=== PATIENT | female | born 1955 | race Two or more races ===

== ENCOUNTER 2017-06-07 16:16 | Emergency (ER) | payer OTHER ==
[~2017-06-07] VITALS: Ht 162.6 cm; Wt 68.0 kg
[~2017-06-07 16:16] MED LIST: IBUPROFEN400 MG ORAL; IBUPROFEN600 MG ORAL; NORCO 5-325 TA1 EACH ORAL
[2017-06-07] MEDS ORDERED: NKM (16:35)
--- NOTE | 2017-06-07 17:16 | Emergency Room Report ---
History of Present Illness General Chief Complaint: General Complaint Source: Patient Present Illness HPI 62-year-old female, no significant past medical history, presenting with generalized weakness, diarrhea, feeling dehydrated. Patient states it started 2 days ago. Has had 3-4 episodes of diarrhea per day. No fever no chills. Feels too weak to get out of bed. Denies any recent travel, no bloody stool, no recent antibiotic use Allergies: Coded Allergies: No Known Allergies (Unverified , 11/05/15) Patient History Past Medical History: see triage record Past Surgical History: none Pertinent Family History: none Last Menstrual Period: Post Reviewed Nursing Documentation: PMH: Agreed, PSxH: Agreed Nursing Documentation-PMH Past Medical History: No History, Except For Review of Systems All Other Systems: negative except mentioned in HPI Physical Exam Vital Signs Date Time Temp Pulse Resp B/P (MAP) Pulse Ox O2 Delivery O2 Flow Rate FiO2 06/07/17 16:29 98.1 84 17 150/98 96 Room Air Sp02 EP Interpretation: reviewed, normal General Appearance: alert, GCS 15, non-toxic, mild distress Head: normocephalic, atraumatic Eyes: bilateral eye normal inspection, bilateral eye PERRL, bilateral eye EOMI ENT: normal ENT inspection, normal pharynx, normal voice, moist mucus membranes Neck: normal inspection, full range of motion, supple Respiratory: normal inspection, lungs clear, normal breath sounds, no respiratory distress, no retraction, no wheezing, speaking full sentences, chest symmetrical Cardiovascular #1: normal inspection, regular rate, rhythm, normal capillary refill Cardiovascular #2: 2+ radial (R), 2+ radial (L) Gastrointestinal: normal inspection, non tender, soft, non-distended, no guarding Musculoskeletal: normal inspection, back normal, normal range of motion, non- tender Neurologic: normal inspection, alert, oriented x3, responsive, motor strength/ tone normal, sensory intact, normal gait, speech normal Psychiatric: normal inspection, judgement/insight normal, memory normal Skin: normal inspection, normal color, no rash, warm/dry, well hydrated, normal turgor Medical Decision Making ER Course 62-year-old female, generalized weakness, diarrhea, feeling dehydrated DDX: Dehydration, electrolyte disturbance, gastroenteritis Abdomen is very soft nontender at this time Plan: Obtain labs, ua, ucx, CXR, EKG IV fluids, Zofran ER course: Patient has remained stable during ED stay. vss nontoxic appearing feels better repeat abd exam continues to be nontender Disposition: Patient is to be discharged to home. Patient is instructed to follow up with their primary care doctor within 5 days. Strict return precautions discussed with patient such as fever, chills, worsening/severe diarrhea/dehydration, nausea, vomiting, which may indicate severe illness. Patient verbalizes understanding and agrees with plan. Please note that this Emergency Department Report was dictated using [employer] technology software, occasionally this can lead to erroneous entry secondary to interpretation by the dictation equipment EKG Diagnostic Results EP Interpretation: Yes Rate: normal Rhythm: NSR ST Segments: No acute changes ASA given to patient: No Rhythm Strip EP Interpretation: Yes Rate: 77 Rhythm: NSR, no PVCs, no ectopy Chest X-ray CXR: Ordered: Yes 1 view Indication: Chest pain EP interpretation: Yes Interpretation: No consolidation, no effusion, no PTX, no acute cardiopulmonary disease Impression: No acute disease Electronically signed by Angel Mares MD Laboratory Tests Test 06/07/17 17:45 06/07/17 19:00 White Blood Count 4.8 K/UL (4.8-10.8) Red Blood Count 3.89 M/UL (4.20-5.40) L Hemoglobin 12.5 G/DL (12.0-16.0) Hematocrit 36.9 % (37.0-47.0) L Mean Corpuscular Volume 95 FL (80-99) Mean Corpuscular Hemoglobin 32.3 PG (27.0-31.0) H Mean Corpuscular Hemoglobin Concent 34.0 G/DL (32.0-36.0) Red Cell Distribution Width 11.1 % (11.6-14.8) L Platelet Count 231 K/UL (150-450) Mean Platelet Volume 7.8 FL (6.5-10.1) Neutrophils (%) (Auto) 47.6 % (45.0-75.0) Lymphocytes (%) (Auto) 37.0 % (20.0-45.0) Monocytes (%) (Auto) 10.0 % (1.0-10.0) Eosinophils (%) (Auto) 4.2 % (0.0-3.0) H Basophils (%) (Auto) 1.1 % (0.0-2.0) Sodium Level 139 MMOL/L (136-145) Potassium Level 3.8 MMOL/L (3.5-5.1) Chloride Level 105 MMOL/L (98-107) Carbon Dioxide Level 29 MMOL/L (21-32) Anion Gap 5 mmol/L (5-15) Blood Urea Nitrogen 11 mg/dL (7-18) Creatinine 0.6 MG/DL (0.55-1.30) Estimate Glomerular Filtration Rate > 60 mL/min (>60) Glucose Level 110 MG/DL (74-106) H Calcium Level 8.7 MG/DL (8.5-10.1) Total Bilirubin 0.2 MG/DL (0.2-1.0) Aspartate Amino Transferase (AST) 19 U/L (15-37) Alanine Aminotransferase (ALT) 27 U/L (12-78) Alkaline Phosphatase 94 U/L (46-116) Troponin I 0.000 ng/mL (0.000-0.056) Pro-B-Type Natriuretic Peptide 72 pg/mL (0-125) Total Protein 6.7 G/DL (6.4-8.2) Albumin 3.3 G/DL (3.4-5.0) L Globulin 3.4 g/dL Albumin/Globulin Ratio 1.0 (1.0-2.7) Urine Color Pale yellow Urine Appearance Clear Urine pH 7 (4.5-8.0) Urine Specific [place] 1.005 (1.005-1.035) Urine Protein Negative (NEGATIVE) Urine Glucose (UA) Negative (NEGATIVE) Urine Ketones Negative (NEGATIVE) Urine Occult Blood Negative (NEGATIVE) Urine Nitrite Negative (NEGATIVE) Urine Bilirubin Negative (NEGATIVE) Urine Urobilinogen Normal MG/DL (0.0-1.0) Urine Leukocyte Esterase Negative (NEGATIVE) Last Vital Signs Date Time Temp Pulse Resp B/P (MAP) Pulse Ox O2 Delivery O2 Flow Rate FiO2 06/07/17 16:29 98.1 84 17 150/98 96 Room Air Disposition: HOME, SELF-CARE Condition: Improved Angel Mares M.D. Jun 07, 2017 17:15
[2017-06-07 18:00] VITALS: BP 118/72
[2017-06-07 18:01] LABS: BASOPHILS % (AUTO) 1.1 % (0.0-2.0); EOSINOPHILS % (AUTO) 4.2 % (0.0-3.0); HEMATOCRIT 36.9 % (37.0-47.0); HEMOGLOBIN 12.5 G/DL (12.0-16.0); MEAN CORPUSCULAR VOLUME 95 FL (80-99); NEUTROPHILS % (AUTO) 47.6 % (45.0-75.0); PLATELET COUNT 231 K/UL (150-450); RED BLOOD COUNT 3.89 M/UL (4.20-5.40); RED CELL DISTRIBUTION WIDTH 11.1 % (11.6-14.8); WHITE BLOOD COUNT 4.8 K/UL (4.8-10.8)
[2017-06-07 18:13] LABS: ANION GAP 5 mmol/L (5-15); BLOOD UREA NITROGEN 11 mg/dL (7-18); CALCIUM 8.7 MG/DL (8.5-10.1); CARBON DIOXIDE 29 MMOL/L (21-32); CHLORIDE 105 MMOL/L (98-107); CREATININE 0.6 MG/DL (0.55-1.30); POTASSIUM 3.8 MMOL/L (3.5-5.1); SODIUM 139 MMOL/L (136-145)
[2017-06-07 18:24] LABS: ALANINE AMINOTRANSFERASE 27 U/L (12-78); ALBUMIN 3.3 G/DL (3.4-5.0); ALKALINE PHOSPHATASE 94 U/L (46-116); ASPARTATE AMINO TRANSFERASE 19 U/L (15-37); BILIRUBIN,TOTAL 0.2 MG/DL (0.2-1.0)
[2017-06-07 19:13] LABS: APPEARANCE,URINE CLEAR; BILIRUBIN, URINE NEGATIVE (NEGATIVE); COLOR,URINE PALE YELLOW; GLUCOSE, URINE (UA) NEGATIVE (NEGATIVE); KETONES,URINE NEGATIVE (NEGATIVE); LEUKOCYTE ESTERASE ,URINE NEGATIVE (NEGATIVE); NITRITE,URINE NEGATIVE (NEGATIVE); PH,URINE 7 (4.5-8.0); PROTEIN,URINE NEGATIVE (NEGATIVE); UROBILINOGEN,URINE NORMAL MG/DL (0.0-1.0)
[2017-06-07 19:30] VITALS: BP 148/93
[2017-06-07 20:10] VITALS: BP 148/93
--- NOTE | 2017-06-08 11:43 | Diagnostic Imaging Report ---
Indication: Chest pain Technique: One view of the chest Comparison: none Findings: Lungs and pleural spaces are clear. Heart size is normal Impression: No acute process
--- NOTE | 2017-06-08 18:21 | Cardiology Report ---
APPROVED REPORT EKG Measurement Heart [id number] Normal sinus rhythm Possible Left atrial enlargement Borderline ECG
== END 2017-06-07 20:10 | disposition home or self-care (01) ==
LOC: EMR 17:01
DX: R53.1 Weakness (principal)
CPT/HCPCS: 36415; 71045; 80053; 81003; 83880; 84484; 85025; 93005; 99284

== ENCOUNTER 2018-03-22 19:25 | Emergency (ER) | payer OTHER ==
[~2018-03-22] VITALS: Ht 165.1 cm; Wt 65.8 kg
[~2018-03-22 19:25] MED LIST changes: +NKM
[2018-03-22 20:00] VITALS: BP 153/96
[2018-03-22] MEDS ORDERED: Bacitracin Oint UD TOPIC ONE (20:00)
--- NOTE | 2018-03-22 20:16 | Emergency Room Report ---
History of Present Illness General Chief Complaint: Pain Source: Patient Present Illness HPI 62-year-old female patient presents to ER complaining of leg and back pain status post fall 2 hours ago. Reports she was walking sore when she tripped over some cords. Reports she fell onto her left knee and her low back. Reports her cane hit her jaw. denies jaw clicking. Denies hitting her head or loss consciousness. Denies bowel or bladder incontinence. Reports pain radiating down left leg thigh. Reports able ambulate. Reports walks with cane currently. Denies fever, chest pain or shortness of breath, abdominal pain. Reports small abrasion on left anterior knee, bleeding well controlled at this time. Allergies: Coded Allergies: No Known Allergies (Unverified , 11/05/15) Patient History Past Medical History: see triage record Last Menstrual Period: unk Now: No : 1 Para: 1 Reviewed Nursing Documentation: PMH: Agreed; PSxH: Agreed Nursing Documentation-PMH Past Medical History: No History, Except For Review of Systems All Other Systems: negative except mentioned in HPI Physical Exam Vital Signs Date Time Temp Pulse Resp B/P (MAP) Pulse Ox O2 Delivery O2 Flow Rate FiO2 03/22/18 19:42 98.1 78 15 153/96 97 Room Air Sp02 EP Interpretation: reviewed, normal General Appearance: well appearing, no apparent distress, alert, GCS 15, non- toxic Head: normocephalic, atraumatic Eyes: bilateral eye normal inspection, bilateral eye PERRL ENT: hearing grossly normal, normal pharynx, no angioedema, normal voice, uvula midline, moist mucus membranes Neck: full range of motion Respiratory: lungs clear, normal breath sounds, no rhonchi, no respiratory distress, no accessory muscle use, no wheezing, speaking full sentences Cardiovascular #1: regular rate, rhythm, no edema Cardiovascular #2: 2+ dorsalis pedis (R), 2+ dorsalis pedis (L) Musculoskeletal: back normal, digits/nails normal, gait/station normal, normal range of motion, no calf tenderness, pelvis stable, other - NVI, no leg length discrepancy, no laxity with varus or valgus stress, tender - left anterior knee , left lumbosacral region Neurologic: alert, oriented x3, responsive, motor strength/tone normal, SLR negative, sensory intact, cerebellar normal, normal gait, speech normal Skin: abrasions - 1 cm abrasion on left anterior knee, no surrounding erythema or edema, no active bleeding Medical Decision Making PA Attestation Dr. Guillen is my supervising Physician whom patient management has been discussed with. Diagnostic Impression: Primary Impression: Fall Additional Impressions: Contusion of left knee Back pain Degenerative disc disease ER Course Pt. presents to the ED c/o left knee and back pain, abrasion on left knee. Ddx considered but are not limited to fracture, sprain, strain, contusion, dislocation. No erythema, no warmth to touch, no fever, nontoxic appearing, low suspicion for septic joint. Soft compartments, no pulselessness, no pallor, no paresthesias, low suspicion for compartment syndrome at this time. Vital signs: are WNL, pt. is afebrile Ordered X-ray and pain medication. ER COURSE left knee abrasion clean and dressed with sterile gauze and bacitracin. Keep clean and dry. Apply topical abx. Rx provided. Provided with pain medication. An X-ray of the Left knee shows acute disease. Likely contusion causing pain symptoms. CT of the L-spine shows no acute fracture, degenerative changes noted, stenosis noted. followup with PCP, discuss further treatment, referral, discuss MRI need. Discuss results with the patient. Provided patient with copy of results. Instructed patient to followup with PCP and discuss results of report with patient, discuss need for further treatment and referral. Patient instructed on RICE method: rest, ice, compression, elevation. Patient instructed on rest, ice and heat. Patient instructed to be WBAT Contact information for orthopedic urgent care provided, follow-up with urgent care if unable to followup with primary care provider and get referral to coding and reimbursement specialist. Followup with primary care provider. Discuss referral to ortho/pain management/ PT as needed. Discuss further imaging with MRI/CT as needed. ER precautions given. DISCHARGE: -Rx provided for Tylenol for pain symptoms. Rx provided for lidocaine patch Rx provided for bacitracin At this time pt. is stable for d/c to home. Patient is resting comfortably, in no acute distress, nontoxic appearing, talking without difficulty. Will provide printed patient care instructions, and any necessary prescriptions. Patient instructed to follow with primary care provider in 3 - 5 days and to request further follow-up as needed. Care plan and follow up instructions have been discussed with the patient prior to discharge. Take medications as directed. Patient questions asked and answered. Patient reports understanding and agreement to treatment plan. ER precautions given, patient instructed to return to ER immediately for any new or worsening of symptoms. - Please note that this Emergency Department Report was dictated using [employer] technology software, occasionally this can lead to erroneous entry secondary to interpretation by the dictation equipment. Other X-Ray Diagnostic Results Other X-Ray Diagnostic Results : X-Ray ordered: left knee # of Views/Limited Vs Complete: 3 View Indication: Pain EP Interpretation: Yes PA Xray: Interpretation reviewed, by supervising MD, and agrees with findings. Interpretation: no dislocation, no soft tissue swelling, no fractures, nonspecific bowel gas Impression: No acute disease NIKKI Carnes PA-C CT/MRI/US Diagnostic Results CT/MRI/US Diagnostic Results : Imaging Test Ordered: CT L spine Impression 1. No acute lumbar spine fracture or malalignment. 2. Mild dextroscoliosis with multilevel degenerative disc disease and facet arthropathy, as detailed above. 3. L3-4: Mild spinal canal, and mild-moderate bilateral foraminal stenosis. 4. L4-5: Mild-moderate spinal canal, moderate right and mild left foraminal stenosis. 5. L5-S1: Moderate right lateral recess, mild right and moderate left foraminal stenosis. Last Vital Signs Date Time Temp Pulse Resp B/P (MAP) Pulse Ox O2 Delivery O2 Flow Rate FiO2 03/22/18 19:42 98.1 78 15 153/96 97 Room Air Status: improved Disposition: HOME, SELF-CARE Condition: Stable Scripts Bacitracin/Polymyxin B Sulfate (BACITRACIN-POLYMYXIN OINTMENT) 28.35 Gm Oint...g. 1 APPLIC TP BID, #28 GM Prov: Salbador Carnes 03/22/18 Acetaminophen* (TYLENOL EXTRA STRENGTH*) 500 Mg Tablet 500 MG ORAL Q8H PRN for Prn Headache/Temp > 101, #30 TAB 0 Refills Prov: Salbador Carnes.AVangie 03/22/18 Lidocaine (Lidocaine) 1 Each Adh..patch 5 % TP DAILY for 7 Days, #7 PATCH Prov: Salbador Carnes 03/22/18 Patient Instructions: Abrasion, Xpha-[id number], Back Pain, Adult, Laet-up-Ekua, Fall Prevention in the Home, Mhck-[id number], Knee Pain, Rgbj-ih-Caek Additional Instructions: Patient instructed to follow up with primary care provider and discuss further referral to orthopedics/physical therapy/pain management as needed. If unable to followup with PCP, followup with orthopedic urgent care in 5-7 days , call to schedule appointment. Patient instructed on RICE method: rest, ice, compression, elevation. Apply ice and heat to back for pain symptoms. Keep wound clean and dry. Patient instructed to WBAT. Take medications as directed. Patient questions asked and answered. ER precautions given, patient instructed to return to ER immediately for any new or worsening of symptoms. [facility] [address] [facility] [address] [facility], [id number] [email or web address] Salbador Carnes Mar 22, 2018 20:16
[2018-03-22] MEDS ORDERED: TYLENOL EXTRA500 MG ORAL (21:24)
[2018-03-22] MEDS ORDERED: LIDOCAINE700 M1 TP (21:24)
[2018-03-22] MEDS ORDERED: BACITRACIN-P28.35 GM TP (21:30)
[2018-03-22 22:00] VITALS: BP 143/88
--- NOTE | 2018-03-23 08:52 | Diagnostic Imaging Report ---
Indication: Pain status post injury Technique: CT bar spine was performed utilizing automated exposure control without intravenous contrast material. Axial, sagittal coronal images were generated. CT dose: Total DLP 400.71 mGycm; CTDI vol 15.9 mGy Comparison: None Findings: The last pair of image ribs are hypoplastic. This last rib-bearing vertebral body will be denoted as T12 for the purposes of counting on this exam only. Using this convention there are 5 nonrib-bearing lumbar-type vertebral bodies. There is mild scoliosis of the lower lumbar spine. No evidence to suggest spondylolisthesis. No acute fractures identified. Vertebral body heights are maintained. There is significant degenerative change of the lumbar spine with multilevel discogenic degenerative changes most pronounced in the lower lumbar spine. At T12-L1: There is degenerative disc with moderate height loss, vacuum disc phenomenon. Apparent focal right central disc osteophyte complex impressing on the ventral thecal sac. There is mild facet arthropathy. There is mild associated central canal stenosis and right foraminal narrowing. At L1-L2: Mild disc height loss and circumferential disc bulge with endplate osteophytes. Mild facet arthropathy. No appreciable central canal stenosis or foraminal narrowing. At L2-L3: Mild disc height loss and cervical vertebral disc bulge with endplate osteophytes and mild facet arthropathy. Apparent mild bilateral foraminal stenosis. No significant central canal stenosis. At L3-L4: Moderate disc height loss, vacuum phenomenon and moderate size cervical vertebral disc bulge and endplate osteophytes. Moderate bilateral facet arthropathy. Mild spinal canal stenosis. Mild to moderate bilateral foraminal stenosis. At L4-L5: Severe right-sided disc height loss and vacuum phenomenon. Moderate size circumflex virtual disc bulge and endplate osteophytes. Moderate bilateral facet arthropathy, worse on the right. Mild to moderate spinal canal stenosis. Moderate right and mild left foraminal stenosis. At L5-S1: Severely degenerated disc with loss of height and partial bone fusion across the disc space. There are endplate osteophytes and moderate bilateral facet arthropathy, worse on the right. Moderate right lateral recess stenosis due to facet hypertrophy. Mild right and moderate left foraminal stenosis. No appreciable significant central canal stenosis. Please note that the central cord, disks and nerve roots are better evaluated on MRI which can be obtained for further evaluation as clinically indicated. The abdominal aorta is normal in caliber with a few scattered atherosclerotic calcifications. IMPRESSION: * No evidence of acute lumbar spine fracture. * Mild scoliosis. * Multilevel discogenic degenerative disease of the spine as detailed above, most pronounced in the lower lumbar spine. Please note that the central cord, disks and nerve roots are better evaluated on MRI which can be obtained for further evaluation as clinically indicated. This corresponds with the statrad preliminary report. The CT scanner at [facility] is accredited by the [employer] and the scans are performed using protocols designed to limit radiation exposure to as low as reasonably achievable to attain images of sufficient resolution adequate for diagnostic evaluation.
--- NOTE | 2018-03-23 11:30 | Diagnostic Imaging Report ---
Indication: Pain Technique: XRAY Knee 3v LT Comparison: None Findings: There is no evidence of acute fracture or dislocation. There is overall mild degenerative change of the knee with some medial prominent joint space narrowing with subchondral sclerosis and mild subchondral cystic change. Small marginal osteophytes are also noted. There is a small fabella. No significant suprapatellar joint effusion. No radiopaque foreign body. Impression: Overall mild degenerative change of the left knee. No evidence of acute fracture.
== END 2018-03-22 22:00 | disposition home or self-care (01) ==
LOC: EMR 20:22
DX: S80.02XA Contusion of left knee, initial encounter (principal); M54.9 Dorsalgia, unspecified; M51.36 Other intervertebral disc degeneration, lumbar region; M41.9 Scoliosis, unspecified; W01.0XXA Fall on same level from slipping, tripping and stumbling without subsequent striking against object, initial encounter; Y92.9 Unspecified place or not applicable
CPT/HCPCS: 72131; 99284

== ENCOUNTER 2018-05-17 14:23 | Emergency (ER) | payer OTHER ==
[~2018-05-17] VITALS: Ht 165.1 cm; Wt 68.0 kg
[~2018-05-17 14:23] MED LIST changes: +BACITRACIN-P28.35 GM TP; +LIDOCAINE700 M1 TP; +TYLENOL EXTRA500 MG ORAL
[2018-05-17 14:54] VITALS: BP 140/80
--- NOTE | 2018-05-17 15:13 | Emergency Room Report ---
History of Present Illness General Chief Complaint: Pain Source: Patient, Medical Record Present Illness HPI 63-year-old female presents to the emergency department complaining of 7 out of 10 in severity localized pain to the right heel 4 days. Patient reports that she feels swelling and her pain is exacerbated upon weight-bearing. Patient states she is able to walk however she tries to limit putting weight on her right heel. Patient denies trauma or fall. Denies open wounds or bleeding. Patient denies skin color changes. She denies paresthesias. Allergies: Coded Allergies: No Known Allergies (Unverified , 05/17/18) Patient History Past Medical History: see triage record Past Surgical History: none Pertinent Family History: none Now: No Reviewed Nursing Documentation: PMH: Agreed; PSxH: Agreed Nursing Documentation-PMH Past Medical History: No History, Except For Review of Systems All Other Systems: negative except mentioned in HPI Physical Exam Vital Signs Date Time Temp Pulse Resp B/P (MAP) Pulse Ox O2 Delivery O2 Flow Rate FiO2 05/17/18 14:30 98.1 86 16 141/83 97 Room Air Sp02 EP Interpretation: reviewed, normal General Appearance: no apparent distress, alert, GCS 15, non-toxic Head: normocephalic, atraumatic Eyes: bilateral eye normal inspection, bilateral eye PERRL ENT: hearing grossly normal, normal voice Neck: full range of motion Respiratory: lungs clear, normal breath sounds, speaking full sentences Cardiovascular #1: regular rate, rhythm, normal capillary refill Musculoskeletal: back normal, gait/station normal - compensatory, normal range of motion, tender - Right heel Neurologic: alert, oriented x3, responsive, motor strength/tone normal, sensory intact, speech normal, grossly normal Psychiatric: judgement/insight normal Skin: normal color, no rash, warm/dry, well hydrated Medical Decision Making PA Attestation Dr. Flowers is my supervising Physician whom patient management has been discussed with. Diagnostic Impression: Primary Impression: Foot sprain Qualified Codes: S93.601A - Unspecified sprain of right foot, initial encounter ER Course 63-year-old female presents to the emergency department complaining of 7 out of 10 in severity localized pain to the right heel 4 days. Patient reports that she feels swelling and her pain is exacerbated upon weight-bearing. Patient states she is able to walk however she tries to limit putting weight on her right heel. Patient denies trauma or fall. Denies open wounds or bleeding. Patient denies skin color changes. She denies paresthesias. Ddx considered but are not limited to Fracture, dislocation, contusion, Sprain/ Strain/Spasm just to name a few. Vital signs: are WNL, pt. is afebrile H&PE are most consistent with musculoskeletal injury will perform imaging to r/ o fractures/dislocations. ORDERS: - X-ray Right Foot 3 views - negative for fx, Dislocation, or significant soft tissue injury, per preliminary read in ED, and signed by NIKKI Jefferson , my supervising physician has reviewed, and agrees with my interpretation. ED INTERVENTIONS: - Zaki wrap applied by health tech. Pt. remains neurovascularly intact. -Motrin PO DISCHARGE: At this time pt. is stable for d/c to home. Will provide printed patient care instructions, and any necessary prescriptions. Care plan and follow up instructions have been discussed with the patient prior to discharge. Other X-Ray Diagnostic Results Other X-Ray Diagnostic Results : X-Ray ordered: Right Foot # of Views/Limited Vs Complete: 3 View Indication: Pain EP Interpretation: Yes NIKKI Xray: Interpretation reviewed, by supervising MD, and agrees with findings. Interpretation: no dislocation, no soft tissue swelling, no fractures Impression: No acute disease Electronically Signed by: Radha Jefferson PA-C Last Vital Signs Date Time Temp Pulse Resp B/P (MAP) Pulse Ox O2 Delivery O2 Flow Rate FiO2 05/17/18 14:54 98.0 78 17 140/80 20 Room Air Disposition: HOME, SELF-CARE Condition: Stable Scripts Acetaminophen With Codeine (T#3) (TYLENOL #3 TAB*) Y Tab 1 TAB ORAL Q6H PRN for For Pain, #6 TAB Prov: Radah Jefferson 05/17/18 Ibuprofen* (MOTRIN*) 600 Mg Tablet 600 MG ORAL THREE TIMES A DAY, #30 TAB 0 Refills Prov: Radha Jefferson 05/17/18 Patient Instructions: Foot Sprain, Plantar Fasciitis Additional Instructions: Take medications as directed. Follow up with a Primary Care Provider in 3-5 days, even if your symptoms have resolved. --Please review list of primary care clinics, if you do not already have a primary care provider Return sooner to ED if new symptoms occur, or current symptoms become worse. - Please note that this Emergency Department Report was dictated using [employer] interviewer technology software, occasionally this can lead to erroneous entry secondary to interpretation by the dictation equipment. Radha Jefferson May 17, 2018 15:13
--- NOTE | 2018-05-17 15:22 | Diagnostic Imaging Report ---
Indication: Foot Pain Comparison: None Findings: 3 views of the right foot were obtained. No acute fractures, malalignment, erosions or periostitis are identified. Bones are osteopenic. Generalized arthrosis of the foot noted. Soft tissues are unremarkable. Impression: No acute findings.
[2018-05-17] MEDS ORDERED: IBUPROFEN600 MG ORAL (15:27)
[2018-05-17] MEDS ORDERED: ACETAMINOPHEN-1 EAC1 ORAL (15:27)
[2018-05-17 15:36] VITALS: BP 125/74
== END 2018-05-17 15:30 | disposition home or self-care (01) ==
LOC: EMR 15:18
DX: S93.601A Unspecified sprain of right foot, initial encounter (principal); X58.XXXA Exposure to other specified factors, initial encounter; Y92.9 Unspecified place or not applicable
CPT/HCPCS: 99283

== ENCOUNTER 2018-06-20 12:35 | Emergency (ER) | payer OTHER ==
[~2018-06-20] VITALS: Ht 165.1 cm; Wt 68.0 kg
[~2018-06-20 12:35] MED LIST changes: +ACETAMINOPHEN-1 EAC1 ORAL
[2018-06-20 12:39] VITALS: BP 160/99
--- NOTE | 2018-06-20 12:49 | NUR ---
ED Nurse Note: Pt from home came in due to productive coughing with green phlegm x 1 week. Pt also c/o headache and pain when she coughs. No respiratory distress.
[2018-06-20] MEDS ORDERED: PROMETHAZINE-D118 ML ORAL (13:37)
[2018-06-20] MEDS ORDERED: IBUPROFEN600 MG ORAL (13:37)
[2018-06-20 13:44] VITALS: BP 152/87
--- NOTE | 2018-06-20 13:44 | NUR ---
ED Nurse Note: Pt is cleared by Health Care Provider for discharge. DC instructions/prescription was given and explained to pt and verbalized understanding of teachings given. All medical devices such as ID band removed. Pt AAO x4, ambulatory and left with all personal belongings.
--- NOTE | 2018-06-20 22:40 | Emergency Room Report ---
History of Present Illness General Chief Complaint: Upper Respiratory Illness Source: Patient, Medical Record Present Illness HPI The patient is a 63-year-old female presenting for cough. This began 3 days prior. She denies any known sick contacts or recent travel. Pain is described as dry and intermittent. She states that the cough has caused abdominal and rib pain. Described as an 8 out of 10 dull ache. Does not radiate. Only occurs with coughing. She denies any other symptoms including fever, chills, shortness of breath, wheezing, rash, diarrhea, myalgia, headache Allergies: Coded Allergies: No Known Allergies (Unverified , 05/17/18) Patient History Past Medical History: see triage record Pertinent Family History: none Last Menstrual Period: menopause Reviewed Nursing Documentation: PMH: Agreed; PSxH: Agreed Nursing Documentation-PMH Past Medical History: No History, Except For Hx Neurological Problems: No - Lower Back Pain (slip discs) Review of Systems All Other Systems: negative except mentioned in HPI Physical Exam Vital Signs Date Time Temp Pulse Resp B/P (MAP) Pulse Ox O2 Delivery O2 Flow Rate FiO2 06/20/18 12:39 98.1 18 160/99 97 Room Air 06/20/18 12:39 99 Sp02 EP Interpretation: reviewed, normal General Appearance: no apparent distress, alert, GCS 15, non-toxic Head: normocephalic, atraumatic Eyes: bilateral eye normal inspection, bilateral eye PERRL ENT: hearing grossly normal, normal pharynx, no angioedema, normal voice, TMs + canals normal, uvula midline, nasal congestion Neck: full range of motion, supple/symm/no masses Respiratory: chest non-tender, lungs clear, normal breath sounds, no wheezing, respiratory distress, speaking full sentences Cardiovascular #1: regular rate, rhythm, no edema Musculoskeletal: back normal, gait/station normal, normal range of motion, non- tender Neurologic: alert, oriented x3, responsive, motor strength/tone normal, sensory intact, speech normal Psychiatric: judgement/insight normal, memory normal, mood/affect normal, no suicidal/homicidal ideation Skin: normal color, no rash, warm/dry, well hydrated Lymphatic: no adenopathy Medical Decision Making PA Attestation Dr. Guillen is my supervising physician. Patient management was discussed with my supervising physician Diagnostic Impression: Primary Impression: Upper respiratory infection Qualified Codes: J06.9 - Acute upper respiratory infection, unspecified ER Course The patient is a 63-year-old female presenting for cough. Differential diagnosis considered but not limited to: Asthma, bronchitis, pneumonia, pharyngitis, among others PE: No apparent distress. No TTP over maxillary or frontal sinuses. Lungs CTA bilat. No wheezing. No accessory muscle use. Heart: RRR, no abnormal heart sounds Ears: external auditory canal clear. Non erythematous. Bilat TM intact. Cone of light present bilat. No bulging of TM. No serous fluid seen. + nasal D/C no cervical lymphad No tonsillar exudate. Uvula midline.Oropharynx non erythematous The patient will be discharged home with prescription for Motrin and cough medication. She will follow-up with her primary doctor within 1 week as discussed. ER precautions given Chest X-Ray Diagnostic Results Chest X-Ray Diagnostic Results : Chest X-Ray Ordered: Yes # of Views/Limited/Complete: 1 View, Limited Indication: Other - cough EP Interpretation: Yes PA Xray: Interpretation reviewed, by supervising MD, and agrees with findings. Interpretation: no consolidation, no effusion, no pneumothorax, no acute cardiopulmonary disease Impression: No acute disease Electronically Signed by: Jose Alberto Melendez PA-C Last Vital Signs Date Time Temp Pulse Resp B/P (MAP) Pulse Ox O2 Delivery O2 Flow Rate FiO2 06/20/18 13:44 97.6 88 20 152/87 98 Room Air Status: improved Disposition: HOME, SELF-CARE Condition: Improved Scripts Ibuprofen* (MOTRIN*) 600 Mg Tablet 600 MG ORAL Q8H PRN for For Pain, #30 TAB 0 Refills Prov: ALISAANJOSE ALBERTO P.A. 06/20/18 D-Methorphan Hb/Prometh Hcl* (PROMETHAZINE-DM SYRUP*) 118 Ml Syrup 5 ML ORAL Q6H PRN for For Cough, #118 ML 0 Refills Prov: ALISAANJOSE ALBERTO P.A. 06/20/18 Patient Instructions: Upper Respiratory Infection, Adult, Cough, Adult Additional Instructions: I discussed my findings with the patient. All questions and concerns have been answered. Treatment and medication compliance have been addressed. I advised the patient that they need to follow up with PMD in 3-5 days. Return to ER if pain remains or worsens, cough worsens or remains, you notice blood in your sputum, you notice wheezing, you experience a fever, or if needed for any reason. Patient verbalized understanding of discharge instructions. JOSE ALBERTO MELENDEZ Jun 20, 2018 22:40
--- NOTE | 2018-06-21 14:28 | Diagnostic Imaging Report ---
Indication: Dyspnea Comparison: 06/07/2017 A single view chest radiograph was obtained. Findings: Cardiomediastinal appearance is within normal limits for age. The lungs are clear. Pulmonary vascularity is appropriate. The diaphragmatic contour is smooth and costophrenic angles are sharp. No pleural effusions are identified. The bones are unremarkable. Impression: No acute findings
== END 2018-06-20 13:44 | disposition home or self-care (01) ==
LOC: EMR 13:12
DX: J06.9 Acute upper respiratory infection, unspecified (principal)
CPT/HCPCS: 71045; 99283

== ENCOUNTER 2018-08-19 18:03 | Emergency (ER) | payer MEDICAID, OTHER ==
[~2018-08-19] VITALS: Ht 157.5 cm; Wt 68.0 kg
[~2018-08-19 18:03] MED LIST changes: +PROMETHAZINE-D118 ML ORAL
--- NOTE | 2018-08-19 18:19 | NUR ---
ED Nurse Note: PT WALKED IN TO ER TODAY FROM HOME. AOX4. PT C/O HEADACHE, PAIN 7/10, PRODUCTIVE COUGH, AND FATIGUE X 2 WEEKS AGO. NO COUGH PRESENT IN ER. PT STATES HEADACHE IS RELIEVED BY IBUPROFEN. PT DENIES DIZZINESS. GAIT STEADY IN ER. NO SIGNS OF RESPIRATORY DISTRESS OR RETRACTIONS NOTED.
[2018-08-19 18:21] VITALS: BP 128/84
--- NOTE | 2018-08-19 19:14 | Emergency Room Report ---
History of Present Illness General Chief Complaint: Generalized Weakness Source: Patient Present Illness HPI 63 YO Female presents to the ED C/O persistent cough x 1 week with sputum production, nasal congestion, rhinorrhea and fatigue. pt. reports more recurrent acid reflux symptoms and states she was prescribed acid reflux medications in the past. Denies sore throat, ear pain, high fevers, neck pain/ stiffness, irritability, photophobia dehydration, N/V/D. Denies CP, Palpitations , LOC, AMS, seizures, paresthesias, or changes in Hearing or vision, no Sudden severe VAUGHAN. Denies hx of smoking, asthma or COPD. She denies significant pmhx. Allergies: Coded Allergies: No Known Allergies (Unverified , 08/19/18) Patient History Past Medical History: see triage record Past Surgical History: none Pertinent Family History: none Last Menstrual Period: MENOPAUSE Now: No Reviewed Nursing Documentation: PMH: Agreed; PSxH: Agreed Nursing Documentation-PMH Past Medical History: No History, Except For Hx Neurological Problems: No - Lower Back Pain (slip discs) Review of Systems All Other Systems: negative except mentioned in HPI Physical Exam Vital Signs Date Time Temp Pulse Resp B/P (MAP) Pulse Ox O2 Delivery O2 Flow Rate FiO2 08/19/18 18:12 98.8 92 16 132/81 97 Room Air Sp02 EP Interpretation: reviewed, normal General Appearance: no apparent distress, alert, GCS 15, non-toxic Head: normocephalic, atraumatic Eyes: bilateral eye normal inspection, bilateral eye PERRL ENT: hearing grossly normal, normal voice, TMs + canals normal, nasal congestion, pharyngeal erythema Neck: full range of motion Respiratory: chest non-tender, lungs clear, normal breath sounds, no respiratory distress, no wheezing, speaking full sentences Cardiovascular #1: regular rate, rhythm, no edema, normal capillary refill Cardiovascular #2: 2+ radial (L) Gastrointestinal: normal bowel sounds, non tender, soft Genitourinary: normal inspection, no CVA tenderness Musculoskeletal: back normal, gait/station normal, normal range of motion, non- tender Neurologic: alert, oriented x3, responsive, motor strength/tone normal, sensory intact, normal gait, speech normal, other - no facial droop, gross motor movements and strenght are normal, grossly normal Psychiatric: judgement/insight normal Skin: normal color, no rash, warm/dry, well hydrated Medical Decision Making PA Attestation Dr. Salinas is my supervising Physician whom patient management has been discussed with. Diagnostic Impression: Primary Impression: Post-nasal drainage Additional Impression: GERD (gastroesophageal reflux disease) Qualified Codes: K21.9 - Gastro-esophageal reflux disease without esophagitis ER Course 63 YO Female presents to the ED C/O persistent cough x 1 week with sputum production, nasal congestion, rhinorrhea and fatigue. pt. reports more recurrent acid reflux symptoms and states she was prescribed acid reflux medications in the past. Denies sore throat, ear pain, high fevers, neck pain/ stiffness, irritability, photophobia dehydration, N/V/D. Denies CP, Palpitations , LOC, AMS, seizures, paresthesias, or changes in Hearing or vision, no Sudden severe VAUGHAN. Denies hx of smoking, asthma or COPD. She denies significant pmhx. Ddx considered but are not limited to URI, pneumonia, PE, strep pharyngitis, meningitis, gastritis, acid reflux Vital signs: Pt. is afebrile, the remaining VS are WNL H&PE are most consistent with URI- no meningeal signs, oropharynx is not involved, no evidence of bacterial infection at this time. ORDERS: EKG: WNL ED INTERVENTIONS: None required at this time. --PT. EDUCATION: Discussed antibiotic resistance with inappropriate prescribing of antibiotics for viral illnesses. Discussed signs and symptoms to indicate viral illness versus bacterial illness. DISCHARGE: At this time pt. is stable for d/c to home. Will provide printed patient care instructions, and any necessary prescriptions. Care plan and follow up instructions have been discussed with the patient prior to discharge. EKG Diagnostic Results EP Interpretation: Dr. Salinas Rate: normal - 68 Rhythm: NSR ST Segments: no acute changes ASA given to the pt in ED: No PA Scribe Text This Interpretation was scribed by NIKKI Jefferson. Last Vital Signs Date Time Temp Pulse Resp B/P (MAP) Pulse Ox O2 Delivery O2 Flow Rate FiO2 08/19/18 18:21 98.6 86 18 128/84 98 Room Air Status: improved Disposition: HOME, SELF-CARE Condition: Stable Scripts Cetirizine Hcl/Pseudoephedrine (ZYRTEC-D TABLET) 1 Each Tab.er.12h 1 EACH ORAL DAILY, #30 TAB Prov: Radha Jefferson 08/19/18 Codeine/Promethazine Hcl* (PROMETHAZINE-CODEINE SYRUP*) 118 Ml Syrup 5 ML ORAL Q6H PRN for For Cough, #120 ML 0 Refills Prov: Radha Jefferson 08/19/18 Guaifenesin (Guaifenesin) 1,200 Mg Tab.er.12h 1200 MG PO Q12HR, #20 TAB Prov: Radha Jefferson 08/19/18 Patient Instructions: Food Choices for Gastroesophageal Reflux Disease, Adult, [id number], Upper Respiratory Infection, Adult, [id number] Additional Instructions: Take medications as directed. Follow up with a Primary Care Provider in 3-5 days, even if your symptoms have resolved. --Please review list of primary care clinics, if you do not already have a primary care provider Return sooner to ED if new symptoms occur, or current symptoms become worse. Do not drink alcohol, drive, or operate heavy machinery while taking Cough Syrup as this may cause drowsiness. - Please note that this Emergency Department Report was dictated using [employer] technology software, occasionally this can lead to erroneous entry secondary to interpretation by the dictation equipment. Radha Jefferson Aug 19, 2018 19:14
[2018-08-19] MEDS ORDERED: ZYRTEC-D TABLE1 EACH ORAL (19:15)
[2018-08-19] MEDS ORDERED: PROMETHAZINE-C118 M1 ORAL (19:15)
[2018-08-19] MEDS ORDERED: GUAIFENESIN1200 MG PO (19:15)
--- NOTE | 2018-08-19 19:21 | NUR ---
ER DISCHARGE NOTE: Patient is cleared to be discharged per ERMD, pt is aox4, on room air, with stable vital signs. pt was given dc and prescription instructions, pt was able to verbalize understanding, pt id band removed without complications. pt is able to ambulate with steady gait. pt took all belongings.
--- NOTE | 2018-08-20 13:32 | Cardiology Report ---
APPROVED REPORT EKG Measurement Heart [id number] Normal sinus rhythm Cannot rule out Anterior infarct, age undetermined Abnormal ECG
== END 2018-08-19 19:22 | disposition home or self-care (01) ==
LOC: EMR 18:58
DX: R09.82 Postnasal drip (principal); K21.9 Gastro-esophageal reflux disease without esophagitis
CPT/HCPCS: 93005; 99283

== ENCOUNTER 2018-12-30 17:09 | Emergency (ER) | payer MEDICAID ==
[~2018-12-30] VITALS: Ht 165.1 cm; Wt 65.8 kg
[~2018-12-30 17:09] MED LIST changes: +GUAIFENESIN1200 MG PO; +PROMETHAZINE-C118 M1 ORAL; +ZYRTEC-D TABLE1 EACH ORAL
--- NOTE | 2018-12-30 17:33 | NUR ---
ED Nurse Note: ERPA at bedside.
[2018-12-30 17:35] VITALS: BP 162/90
--- NOTE | 2018-12-30 17:36 | NUR ---
ED Nurse Note: pt walked in due to pain on the lower back since thursday. pt stated she was at home and tried to pick a pale of water and her abck started to hurt when she bend. pt denies any other trauma. pt able to ambulate with cane. jefe Butts on bedside. will continue to monitor
--- NOTE | 2018-12-30 17:40 | NUR ---
ED Nurse Note: pt able to give urine sample and was sent to lab. pt went to xray
[2018-12-30 17:59] LABS: APPEARANCE,URINE CLEAR; BILIRUBIN, URINE NEGATIVE (NEGATIVE); COLOR,URINE PALE YELLOW; GLUCOSE, URINE (UA) NEGATIVE (NEGATIVE); KETONES,URINE NEGATIVE (NEGATIVE); LEUKOCYTE ESTERASE ,URINE NEGATIVE (NEGATIVE); NITRITE,URINE NEGATIVE (NEGATIVE); PH,URINE 7 (4.5-8.0); PROTEIN,URINE NEGATIVE (NEGATIVE); UROBILINOGEN,URINE NORMAL MG/DL (0.0-1.0)
--- NOTE | 2018-12-30 18:39 | Emergency Room Report ---
History of Present Illness General Chief Complaint: Back Pain-No Injury Source: Patient, Medical Record Present Illness HPI 63-year-old female with history of chronic low back pain here complaining of worsening low back pain for the past 2 days. Patient reports that she was diagnosed with degenerative disc disease many years ago however has not follow- up with her primary care provider in a few months. Patient has an upcoming appointment with her primary pain October. Patient reports that she lifted something heavy couple days ago and started having a 10 out of 10 pain in the lumbar region without radiation to legs and denies tingling and numbness. Denies saddle paresthesia, urinary or bowel incontinence. Denies any new injury or fall. Also complains of bilateral knee pain that has been going on for many years especially when she stands on her feet for long time. Denies chest pain, shortness of breath, palpitation, abdominal pain, nausea vomiting and all other associated symptoms. Has not taken medication other than Advil for symptom relief. Allergies: Coded Allergies: No Known Allergies (Unverified , 08/19/18) Patient History Past Medical History: see triage record Past Surgical History: unable to obtain Pertinent Family History: none Now: No Immunizations: UTD Reviewed Nursing Documentation: PMH: Agreed; PSxH: Agreed Nursing Documentation-PMH Past Medical History: No History, Except For Hx Neurological Problems: No - Lower Back Pain (slip discs) Review of Systems All Other Systems: negative except mentioned in HPI Physical Exam Vital Signs Date Time Temp Pulse Resp B/P (MAP) Pulse Ox O2 Delivery O2 Flow Rate FiO2 12/30/18 17:16 98.8 90 16 162/90 (114) 96 Room Air Sp02 EP Interpretation: reviewed, normal General Appearance: no apparent distress, alert, GCS 15, non-toxic Head: normocephalic, atraumatic Eyes: bilateral eye normal inspection, bilateral eye PERRL ENT: hearing grossly normal, normal pharynx, no angioedema, normal voice Neck: full range of motion, supple/symm/no masses Respiratory: chest non-tender, lungs clear, normal breath sounds, speaking full sentences Cardiovascular #1: regular rate, rhythm, no edema, no murmur Gastrointestinal: normal bowel sounds, non tender, soft, non-distended, no guarding, no rebound Genitourinary: normal inspection, no CVA tenderness Musculoskeletal: back normal, digits/nails normal, gait/station normal, normal range of motion, non-tender, no calf tenderness Neurologic: alert, oriented x3, responsive, motor strength/tone normal, sensory intact, speech normal Psychiatric: judgement/insight normal, memory normal, mood/affect normal, no suicidal/homicidal ideation Skin: no rash Lymphatic: no adenopathy Medical Decision Making PA Attestation All my diagnosis and treatment plans were reviewed ad discussed with my supervising physician Dr. Flowers Diagnostic Impression: Primary Impression: Chronic lumbar pain Additional Impression: Degenerative arthritis ER Course 63-year-old female with history of chronic low back pain here complaining of worsening low back pain for the past 2 days. Patient reports that she was diagnosed with degenerative disc disease many years ago however has not follow- up with her primary care provider in a few months. Patient has an upcoming appointment with her primary pain October. Patient reports that she lifted something heavy couple days ago and started having a 10 out of 10 pain in the lumbar region without radiation to legs and denies tingling and numbness. Denies saddle paresthesia, urinary or bowel incontinence. Denies any new injury or fall. Also complains of bilateral knee pain that has been going on for many years especially when she stands on her feet for long time. Denies chest pain, shortness of breath, palpitation, abdominal pain, nausea vomiting and all other associated symptoms. Has not taken medication other than Advil for symptom relief. Ddx considered but are not limited to: Lumbar spine sprain, strain, fracture, contusion, neuropathy Vital signs: are WNL, pt. is afebrile H&PE are most consistent with: Chronic lumbar pain and degenerative arthritis as well as arthritis of both knee ORDERS: Lumbar spine x-ray, Voltaren gel, Tylenol ER intervention: None DISCHARGE: At this time pt. is stable for d/c to home. Will provide printed patient care instructions, and any necessary prescriptions. Care plan and follow up instructions have been discussed with the patient prior to discharge. Patient to continue using her usual lidocaine patch patient does not want to take any ibuprofen as it bothers her stomach. Patient to follow-up with her primary care provider for referral to laser specialist as well as physical therapy. I explained to her that her knees do not need to be x-ray as she has full range of motion and possibly has arthritis no new injury has happened. Return to emergency room if worsening symptoms. Patient agrees with the above treatment. Other X-Ray Diagnostic Results Other X-Ray Diagnostic Results : X-Ray ordered: Lumbar # of Views/Limited Vs Complete: 3 View Indication: Pain EP Interpretation: Yes NIKKI Xray: Interpretation reviewed, by supervising MD, and agrees with findings. Interpretation: no dislocation, no soft tissue swelling, no fractures Impression: No acute disease Electronically Signed by: Beckie Dudley PA-C Last Vital Signs Date Time Temp Pulse Resp B/P (MAP) Pulse Ox O2 Delivery O2 Flow Rate FiO2 12/30/18 17:35 98.8 90 16 162/90 96 Room Air Disposition: HOME, SELF-CARE Condition: Stable Scripts Acetaminophen (Tylenol) 325 Mg Tablet 650 MG ORAL Q6H PRN for Prn Pain/Headache/Temp > 101, #30 TAB 0 Refills Prov: Beckie Franks 12/30/18 Diclofenac Sodium (VOLTAREN) 100 Gm Gel..gram. 2 GM TP TID, #100 GM Prov: Beckie Franks 12/30/18 Referrals: [facility],REFERR[facility] (PCP) Patient Instructions: Arthritis, [id number], Back Pain, Adult, Degenerative Disk Disease Additional Instructions: Take medication as directed follow-up with your primary care provider for referral to physical therapy especially laser specialist. If worsening symptoms such as numbness in buttocks area and tingling return to the emergency room. Beckie Franks Dec 30, 2018 18:39
[2018-12-30] MEDS ORDERED: VOLTAREN100 G1 TP (18:41)
[2018-12-30] MEDS ORDERED: TYLENOL325 MG ORAL (18:41)
[2018-12-30 18:49] VITALS: BP 123/84
[2018-12-30 18:52] VITALS: BP 123/84
--- NOTE | 2018-12-31 13:35 | Diagnostic Imaging Report ---
Indication: Back pain Comparison: None Findings: 3 views of the lumbar spine were obtained. Multilevel narrowing of intervertebral disks and associated endplate and facet osteophytes are present. No malalignment identified. The bones are osteopenic. No acute fracture definitely seen. Impression: Moderate spondylosis. No acute injury appreciated.
== END 2018-12-30 18:53 | disposition home or self-care (01) ==
LOC: EMR 17:43
DX: M54.5 Low back pain (principal); G89.29 Other chronic pain; M47.816 Spondylosis without myelopathy or radiculopathy, lumbar region
CPT/HCPCS: 72020; 81001; 99283